=== PATIENT | female | born 1960 | race African-American/Black ===

== ENCOUNTER → 2016-08-31 | Outpatient (CLI) | payer BC ==
--- NOTE | ~2016-08-31 | BD1 ---
[facility] A Service of [facility] & [facility] RADIOLOGY TEXT RESULTS PATIENT: JEANNIE PEREZ LOCATION: [facility] : 58 UNIT #: [id number] AGE: [address]: Saritha Jane MD SEX: F ORDER DR: [id number] [facility] [address] [place], [place] [address] [id number] O MR#: [id number] Acc #: [id number] NAME: JEANNIE PEREZ : 1960 SEX: F STUDY DATE/TIME: 08/31/2016 14:13 UNIT: [facility] ROOM: STUDY DESCRIPTION: BD Dexa Bone Dens 1+ Site Attending Physician: Saritha Jane M.D. Ordering Physician: Saritha Jane M.D. Primary Care Physician: Saritha Jane M.D. MEDICAL IMAGING REPORT This report is preliminary unless electronic signature is present EXAM Bone density spine and hip 08/31/2016 HISTORY Screening. Premarin p.r.n. [place]. Nonsmoker. I-131 radiation 1979 for thyroid cancer. Postmenopausal. Bone density scanning performed upper 4 lumbar vertebral segment and proximal left femur in 56-year-old female. L1-L4: Total bone mineral density 1.174 g per square centimeter for a T-score 1.2 standard deviation above mean for a reference population normal young individuals and a Z-score 2.4 standard deviations above the mean for age-match population. Proximal left femur: Total bone mineral density 1.004 g per square centimeter for a T-score 0.5 standard deviation above the mean for a reference population normal young individuals and a Z-score of 1.3 standard deviations above the mean for age-matched population. Left femoral neck bone mineral density 0.845 g per square centimeter for a T-score 0 standard deviations of the mean for a reference population normal young individuals and a Z-score 1.1 standard deviations above the mean for age-match population. IMPRESSION Normal bone mineral density in upper four lumbar vertebral segments overall and in the proximal left femur. Please correlate with patient's clinical status. Continued surveillance recommended. [facility] A Service of [facility] & [facility] RADIOLOGY TEXT RESULTS PATIENT: JEANNIE PEREZ LOCATION: [facility] : 58 UNIT #: [id number] AGE: [address]: Saritha Jane MD SEX: F ORDER DR: Dictated by... Bulmaro Mckeon M.D. THIS IS AN ELECTRONICALLY VERIFIED REPORT Bulmaro Mckeon M.D. at 09/04/2016 6:04 PM Aidan TD: 09/03/2016 11:15 JOB #: [id number] MEDICAL IMAGING REPORT Page 1 of 1 COPY
--- NOTE | ~2016-08-31 | MY11 ---
[facility] A Service of [facility] RADIOLOGY TEXT RESULTS PATIENT: JEANNIE PEREZ LOCATION: [facility] : 58 UNIT #: [id number] AGE: [address]: Saritha Jane MD SEX: F ORDER DR: [id number] [facility] [address] [place], [place] [address] [id number] O MR#: [id number] Acc #: [id number] NAME: JEANNIE PEREZ : 1960 SEX: F STUDY DATE/TIME: 08/31/2016 13:58 UNIT: [facility] ROOM: STUDY DESCRIPTION: MY Mammogram Screening Dig Timothy Attending Physician: Saritha Jane M.D. Ordering Physician: Saritha Jane M.D. Primary Care Physician: Saritha Jane M.D. MEDICAL IMAGING REPORT This report is preliminary unless electronic signature is present EXAM Digital screening mammogram. DATE OF EXAM 08/31/2016 LOCATION [facility]. HISTORY 56-year-old woman, no risk elevation. Annual screen. COMPARISON 11/12/2011, 05/18/2015. FINDINGS Digital imaging of each breast was completed utilizing a two-view examination of each breast in craniocaudal and mediolateral-oblique projections. Review and interpretation of digital mammograms include a second review in conjunction with FDA-approved CAD device. There is a normal parenchymal presentation bilaterally consistent with the patient's age. There are no breast masses imaged and no parenchymal asymmetry is visualized. There are no suspicious microcalcifications and I see no focal architectural disturbance. IMPRESSION Negative screening digital mammogram. One-year followup recommended. Patients over the age of 40 are entered into a reminder system with target due date for the next mammogram. A result letter will also be sent to the patient. BIRADS: 1 Negative. [facility] A Service [facility] RADIOLOGY TEXT RESULTS PATIENT: JEANNIE PEREZ LOCATION: [facility] : 58 UNIT #: [id number] AGE: [address]: Saritha Jane MD SEX: F ORDER DR: Dictated by... Bernard Long M.D. THIS IS AN ELECTRONICALLY VERIFIED REPORT Bernard Long M.D. at 08/31/2016 3:56 PM EDDIE/willy TD: 08/31/2016 15:49 JOB #: [id number] MEDICAL IMAGING REPORT Page 1 of 1 COPY
== END | disposition home or self-care (01) ==
LOC: CWCC 13:45
DX: Z13.820 Encounter for screening for osteoporosis (principal); Z12.31 Encounter for screening mammogram for malignant neoplasm of breast
CPT/HCPCS: 77080; G0202

== ENCOUNTER → 2016-11-04 | Outpatient (CLI) | payer BC ==
[2016-11-04 17:08] LABS: URINE APPEARANCE CLEAR; URINE BILIRUBIN NEG (NEG); URINE BLOOD TRACE (NEG); URINE COLOR YELLOW; URINE GLUCOSE NEG (NEG); URINE KETONE NEG (NEG); URINE LEUKOCYTE ESTERASE NEG (NEG); URINE NITRATE NEG (NEG); URINE PH 5.5 (5-8); URINE PROTEIN NEG (NEG); URINE SPECIFIC GRAVITY 1.015 (1.003-1.035); URINE UROBILINOGEN 0.2 MG/DL (NEG)
[2016-11-04 17:11] LABS: CULTURE INDICATED? YES; URBCS1 AUWI 0-2 /[HPF] (0-2); URINE BACTERIA AUWI 1+ (NEGATIVE); URINE SQUAMOUS EPITHELIAL CELL FEW /[HPF]
[2016-11-04 17:16] LABS: HEMATOCRIT 36.1 % (35.0-45.0); MEAN CELL VOLUME 74.7 FL (83-96); MEAN CORPUSCULAR HEMOGLOBIN 24.8 PG (28-34); MEAN CORPUSCULAR HGB CONC 33.2 g/dL (30-36); RED BLOOD COUNT 4.84 X10e (3.90-5.30); RED CELL DISTRIBUTION WIDTH 14.5 % (11.0-15.5); WHITE BLOOD COUNT 15.9 X10e3 (4.0-10.5)
[2016-11-04 17:19] LABS: URINE SOURCE CLEAN CATCH
[2016-11-04 17:28] LABS: ALBUMIN SERUM 4.3 g/dL (3.5-5.0); BILIRUBIN,TOTAL 0.2 mg/dL (0.2-2.0); CALCIUM SERUM 9.6 mg/dL (8.4-10.2); CREATININE SERUM 0.8 mg/dL (0.6-1.4); GLOM FILT RATE Estimated 94.9 mL/min (>60); POTASSIUM 3.6 mmol/L (3.5-5.1); PROTEIN TOTAL SERUM 8.5 g/dL (6.0-8.3)
== END | disposition home or self-care (01) ==
LOC: CLAB 16:42
PROVIDERS: Nurse Practitioner Family
DX: L50.0 Allergic urticaria (principal); M79.1 Myalgia; R23.3 Spontaneous ecchymoses
CPT/HCPCS: 36415; 80053; 81003; 85027; 85652; 86021; 86140; 86430; 87086; 87651

== ENCOUNTER → 2016-11-08 | Outpatient (CLI) | payer BC ==
[2016-11-08 15:02] LABS: BASOPHIL# 0.1 X10e3 (0-0.3); BASOPHIL% 0.5 % (0-2.5); EOSINOPHIL% 0.3 % (0.0-7.0); HEMATOCRIT 34.4 % (35.0-45.0); HEMOGLOBIN 11.4 gm/dL (12.0-16.0); LYMPHOCYTE# 5.8 X10e3 (1.0-3.5); LYMPHOCYTE% 42.2 % (17.0-45.0); MEAN CELL VOLUME 74.7 FL (83-96); MEAN CORPUSCULAR HEMOGLOBIN 24.7 PG (28-34); MEAN CORPUSCULAR HGB CONC 33.1 g/dL (30-36); MONOCYTE# 1.1 X10e3 (0-1.0); MONOCYTE% 7.9 % (3.0-12.0); NEUTROPHIL# 6.7 X10e3 (1.5-7.1); NEUTROPHIL% 49.1 % (40-75); PLATELET COUNT 330 X10e3 (140-420); RED CELL DISTRIBUTION WIDTH 14.2 % (11.0-15.5); WHITE BLOOD COUNT 13.6 X10e3 (4.0-10.5)
[2016-11-08 15:03] LABS: DIFF IND NO
[2016-11-11 21:56] LABS: ANA SCREEN Negative (Negative); HA AB IGM (HEPPAN) Nonreactive (()); HB CORE AB IGM (HEPPAN) Nonreactive (Nonreactive); HB S AG (HEPPAN) Nonreactive (Nonreactive); HEP C AB (HEPPAN) Nonreactive (Nonreactive); HEP C AB SIGNAL TO CUTOFF 0.03 ratio (<1.00); SJOGREN'S SSA AB <1.0 AI (<1.0); SJOGREN'S SSB AB <1.0 AI (<1.0); SPE A1GLOB (PNL) 0.3 g/dL (0.2-0.3); SPE A2GLOB (PNL) 0.7 g/dL (0.5-0.9); SPE ALB (PNL) 3.8 g/dL (3.8-4.8); SPE BETA 1 GLOBULIN 0.4 g/dL (0.4-0.6); SPE BETA 2 GLOBULIN 0.5 g/dL (0.2-0.5); SPE GAMMA (PNL) 1.3 g/dL (0.8-1.7)
== END | disposition home or self-care (01) ==
LOC: CLAB 13:54
DX: L95.9 Vasculitis limited to the skin, unspecified (principal); M25.569 Pain in unspecified knee
CPT/HCPCS: 36415; 80074; 82085; 82550; 82585; 82595; 84165; 85025; 86038; 86039; 86162; 86235

== ENCOUNTER → 2016-11-08 | Outpatient (CLI) | payer BC ==
[2016-11-10 08:34] LABS: MYELOPEROXIDASE AB (PNL) <1.0 AI (<1.0); PROTEINASE-3 AB (PNL) <1.0 AI (<1.0)
== END | disposition home or self-care (01) ==
LOC: CLAB 15:12
PROVIDERS: Nurse Practitioner Family
DX: M79.1 Myalgia (principal); R23.3 Spontaneous ecchymoses
CPT/HCPCS: 86021

== ENCOUNTER → 2016-11-19 | Outpatient (CLI) | payer BC ==
--- NOTE | ~2016-11-19 | CT55 ---
[facility] A Service of [facility] / [facility] RADIOLOGY TEXT RESULTS PATIENT: JEANNIE PEREZ LOCATION: REPLACED BY [facility] #: [id number] : 58 UNIT #: [id number] AGE: [address]: WARREN MASSEY SEX: F ORDER DR: [id number] [address] [address] [id number] O MR#: [id number] Acc #: [id number] NAME: JEANNIE PEREZ : 1960 SEX: F STUDY DATE/TIME: 11/19/2016 15:30 UNIT: [facility] ROOM: STUDY DESCRIPTION: CT Chest W Con Attending Physician: Warren Massey Aprn Referring Physician: Warren Massey Aprn Primary Care Physician: Saritha Jane M.D. MEDICAL IMAGING REPORT This report is preliminary unless electronic signature is present EXAM CT chest INDICATIONS Shortness of air for [address] of the chest utilizing 70 mL Isovue-370 IV contrast. Coronal and sagittal reconstructions were obtained. The CT exam was performed with one or more of the following radiation dose reduction techniques: automatic exposure control, adjustment of mA and/or kV according to patient size, and iterative reconstruction. COMPARISON Chest radiograph 11/07/2016 FINDINGS No pathologically enlarged mediastinal or hilar lymph nodes. Thoracic aorta is normal in caliber. No pericardial or pleural effusion. No focal consolidation. Central airways are patent. No acute osseous abnormalities. IMPRESSION 1. No acute findings in the chest. No findings to account the patient's symptoms. Dictated by... Yimi Shane M.D. [facility] A Service of [facility] / [facility] RADIOLOGY TEXT RESULTS PATIENT: JEANNIE PEREZ LOCATION: [facility] : 58 UNIT #: [id number] AGE: [address]: WARREN MASSEY SEX: F ORDER DR: THIS IS AN ELECTRONICALLY VERIFIED REPORT Yimi Shane M.D. at 11/20/2016 1:44 PM C/arthur TD: 11/20/2016 11:04 JOB #: [id number] MEDICAL IMAGING REPORT Page 1 of 1 COPY
== END | disposition home or self-care (01) ==
LOC: CCAT 13:45
DX: R06.02 Shortness of breath (principal)
CPT/HCPCS: 71260; Q9967

== ENCOUNTER → 2017-01-03 | Outpatient (CLI) | payer BC ==
[2017-01-03 15:44] LABS: BASOPHIL# 0.1 X10e3 (0-0.3); BASOPHIL% 0.8 % (0-2.5); EOSINOPHIL% 0.2 % (0.0-7.0); HEMATOCRIT 36.7 % (35.0-45.0); HEMOGLOBIN 12.4 gm/dL (12.0-16.0); LYMPHOCYTE# 2.8 X10e3 (1.0-3.5); LYMPHOCYTE% 23.7 % (17.0-45.0); MEAN CELL VOLUME 77.4 FL (83-96); MEAN CORPUSCULAR HEMOGLOBIN 26.2 PG (28-34); MEAN CORPUSCULAR HGB CONC 33.8 g/dL (30-36); MEAN PLATELET VOLUME 8.4 FL (6.5-11.5); MONOCYTE# 0.6 X10e3 (0-1.0); NEUTROPHIL# 8.1 X10e3 (1.5-7.1); NEUTROPHIL% 70.3 % (40-75); PLATELET COUNT 277 X10e3 (140-420); RED BLOOD COUNT 4.74 X10e (3.90-5.30); RED CELL DISTRIBUTION WIDTH 15.7 % (11.0-15.5); WHITE BLOOD COUNT 11.6 X10e3 (4.0-10.5)
[2017-01-03 15:45] LABS: DIFF IND NO
[2017-01-03 16:18] LABS: ALBUMIN SERUM 3.9 g/dL (3.5-5.0); BILIRUBIN,TOTAL 0.5 mg/dL (0.2-2.0); CALCIUM SERUM 8.8 mg/dL (8.4-10.2); GLOM FILT RATE Estimated 72.5 mL/min (>60); PROTEIN TOTAL SERUM 7.3 g/dL (6.0-8.3)
== END | disposition home or self-care (01) ==
LOC: CLAB 15:27
PROVIDERS: Nurse Practitioner Pediatrics
DX: L95.8 Other vasculitis limited to the skin (principal)
CPT/HCPCS: 36415; 80053; 85025

== ENCOUNTER → 2017-01-18 | Outpatient (CLI) | payer BC ==
[2017-01-18 17:26] LABS: BASOPHIL# 0.1 X10e3 (0-0.3); BASOPHIL% 0.7 % (0-2.5); EOSINOPHIL# 0.1 X10e3 (0-0.7); EOSINOPHIL% 0.7 % (0.0-7.0); HEMATOCRIT 34.9 % (35.0-45.0); HEMOGLOBIN 11.7 gm/dL (12.0-16.0); LYMPHOCYTE# 2.6 X10e3 (1.0-3.5); LYMPHOCYTE% 23.9 % (17.0-45.0); MEAN CELL VOLUME 78.8 FL (83-96); MEAN CORPUSCULAR HEMOGLOBIN 26.4 PG (28-34); MEAN CORPUSCULAR HGB CONC 33.5 g/dL (30-36); MEAN PLATELET VOLUME 8.6 FL (6.5-11.5); MONOCYTE# 0.8 X10e3 (0-1.0); MONOCYTE% 7.7 % (3.0-12.0); NEUTROPHIL# 7.3 X10e3 (1.5-7.1); PLATELET COUNT 288 X10e3 (140-420); RED BLOOD COUNT 4.43 X10e (3.90-5.30); RED CELL DISTRIBUTION WIDTH 14.7 % (11.0-15.5); WHITE BLOOD COUNT 10.9 X10e3 (4.0-10.5)
[2017-01-18 17:30] LABS: DIFF IND NO
== END | disposition home or self-care (01) ==
LOC: CLAB 17:01
PROVIDERS: Nurse Practitioner Pediatrics
DX: L95.8 Other vasculitis limited to the skin (principal)
CPT/HCPCS: 36415; 85025